=== PATIENT | male | born 1960 | race Caucasian/White ===

== ENCOUNTER 2018-03-16 16:24 | Emergency (ER) | payer BC ==
[2018-03-16] MEDS ORDERED: Lidocaine 1% 10 ML MDV INJECT ONE (17:40)
--- NOTE | 2018-03-16 18:42 | EDM.PDOC ---
ED HPI GENERAL MEDICAL PROBLEM - General Chief Complaint: Laceration Stated Complaint: LEFT HAND LAC Time Seen by Provider: 03/16/18 17:25 Source of Information: Reports: Patient History Limitations: Reports: No Limitations - History of Present Illness INITIAL COMMENTS - FREE TEXT/NARRATIVE: 58-year-old male presents for evaluation and treatment of a laceration to the base of his left thumb. Injury occurred prior to arrival in the ER. Patient reports was using a utility knife and the neck slipped and cut his left hand. Denies any numbness or tingling. Bleeding controlled upon arrival to the ER. No numbness or tingling. No decreased range of motion. Last tetanus was about 2 months ago. Patient continues peroxide inguinal prior to arrival in the ER. Left Hand Pain Score (Numeric/FACES): 3 - Related Data Allergies Allergy/AdvReac Type Severity Reaction Status Date / Time No Known Allergies Allergy Verified 03/16/18 16:38 Home Meds: Home Meds Aspirin [Halfprin] 81 mg PO DAILY 03/16/18 [History] Fish Oil/[place]-3 Fatty Acids [Fish Oil] 1 tab PO DAILY 03/16/18 [History] atorvaSTATin [Lipitor] 10 mg PO BEDTIME 03/16/18 [History] Past Medical History Cardiovascular History: Reports: High Cholesterol - Past Surgical History HEENT Surgical History: Reports: Adenoidectomy, Tonsillectomy Social & Family History - Tobacco Use Smoking Status *Q: Never Smoker - Caffeine Use Caffeine Use: Reports: Coffee, Soda - Recreational Drug Use Recreational Drug Use: No ED ROS GENERAL - Review of Systems Review Of Systems: See Below Musculoskeletal: Reports: Other (no decreased ROM) Skin: Reports: Wound (left hand) Neurological: Denies: Numbness, Tingling ED EXAM, SKIN/RASH Exam: See Below Exam Limited By: No Limitations General Appearance: Alert, WD/WN, No Apparent Distress Respiratory/Chest: No Respiratory Distress Cardiovascular: Normal Peripheral Pulses, Regular Rate, Rhythm Peripheral Pulses: 2+: Radial (L), Radial (R) Extremities: Normal Range of Motion (able to make a fist, oppose fingers to thumb, flex and extend thum and fingers, adduct and abduct thumb), Normal Capillary Refill Neurological: Alert, Oriented, Normal Cognition Psychiatric: Normal Affect, Normal Mood Skin: Warm, Dry, Normal Color Location, Skin: Upper Extremity, Left (3cm laceartion to the left hand thenar emminance) Characteristics: Linear ED SKIN PROCEDURES - Laceration/Wound Repair Left Hand Lac/Wound length In cm: 3 Appearance: Subcutaneous, Linear Distal NVT: Neuro & Vascular Intact, No Tendon Injury Anesthetic Type: Local Local Anesthesia - Lidocaine (Xylocaine): 1% Plain Local Anesthetic Volume: 3cc Skin Prep: Saline, Sterile Drape Suture Size: 4-0 # of Sutures: 5 Suture Type: Nylon, Interrupted, Simple Sterile Dressing Applied: Nurse Tetanus Status Addressed: Yes Complications: No Course - Vital Signs Last Recorded V/S: Last Vital Signs Temp 36.1 C 03/16/18 16:33 Pulse 70 03/16/18 16:33 Resp 20 03/16/18 16:33 BP 137/94 H 03/16/18 16:33 Pulse Ox 95 03/16/18 16:33 - Orders/Labs/Meds Meds: Medications Discontinued Medications Generic Name Dose Route Start Last Admin Trade Name Singhq PRN Reason Stop Dose Admin Lidocaine HCl 10 ml 03/16/18 17:40 03/16/18 18:00 Xylocaine 1% INJECT 03/16/18 17:41 10 ml ONETIME ONE Administration - Re-Assessments/Exams Free Text/Narrative Re-Assessment/Exam: 03/16/18 18:39 5 sutures placed to the left thenar elements. Patient tolerated this well. There are no combinations. Discharge instructions this document. Departure - Departure Time of Disposition: 18:42 Disposition: Home, Self-Care 01 Condition: Fair Clinical Impression: Laceration - Discharge Information Instructions: Laceration Care, Adult, [id number] Referrals: PCP,Not In Area [Primary Care Provider] - Meaghan Stacy, PERSONAL CARE ATTENDANT [ED Midlevel Provider] - Forms: ED Department Discharge Additional Instructions: Wash the wound gentle soap and water twice a day. Apply antibacterial ointment such as Neosporin or bacitracin to the wound twice a day for 3 days. Monitor signs infection such as increased swelling, pus or redness. Present to clinic or the ER should these develop. [id number] Tylenol or Motrin seen for pain relief. Keep the wound covered. Have the sutures removed in about 10 days. Your primary care provider can do this for Call [phone] schedule with Cynthia. Please return to the ER if your symptoms change or worsen.
== END 2018-03-16 18:50 | disposition home or self-care (01) ==
LOC: JD.ED 16:24
DX: S61.412A Laceration without foreign body of left hand, initial encounter (principal); E78.00 Pure hypercholesterolemia, unspecified; Z79.82 Long term (current) use of aspirin; Z79.899 Other long term (current) drug therapy; W45.8XXA Other foreign body or object entering through skin, initial encounter; W26.0XXA Contact with knife, initial encounter
CPT/HCPCS: 12002; 99282-25; 99283-25